=== PATIENT | female | born 1940 | race Caucasian/White ===

== ENCOUNTER 2017-12-26 12:56 | Inpatient (IN) | payer OTHER ==
[2017-12-26 13:43] LABS: PLATELET COUNT 229 10^3/uL (150-400)
[2017-12-26] MEDS ORDERED: NS 1,000 ML IV ONE ×2 (13:43→13:44)
--- NOTE | 2017-12-26 13:46 | EDPHY ---
H & P Smoking Status: Never smoked <KapilGabe - Last Filed: 12/26/17 15:10> <Chris Eubanks - Last Filed: 12/26/17 17:43> Time Seen by Provider: 12/26/17 13:14 HPI/ROS: Chief complaint. Loss of consciousness HPI. Patient is 77-year-old female visiting from [place]. [place] food and had vomiting. At 1 point during that episode at night her face tightness denies rolled back and she had brief loss of consciousness. There was no shaking or seizure-type activity. She felt weak for the next week did not have an evaluation by PCP. They arrive from [place] a yesterday. Today she was dizzy with walking and then sat down and then face went rigid for about 30 sec and she was unresponsive. Again no shaking. She has no headache, visual symptoms, chest pain, shortness of breath, abdominal pain. She has had decreased oral intake. No previous seizure or heart disease. ROS 10 systems were reviewed and negative with the exception of the elements mentioned in the history of present illness (Gabe Dick) Past Medical/Surgical History: Constipation (Gabe Dick) Social History: , nonsmoker, no alcohol (Gabe Dick) Physical Exam: General Appearance: Alert well-developed female mild distress vital signs are stable Eyes: Pupils equal and round no pallor or injection. ENT, Mouth: Mucous membranes are moist. Respiratory: There are no retractions, lungs are clear to auscultation. Cardiovascular: Regular rate and rhythm. Gastrointestinal: Abdomen is soft and nontender, no masses, bowel sounds normal. Neurological: Awake and alert, sensory and motor exams grossly normal. Speech is normal. Cranial nerves normal. There is no pronator drift. Xovkep-jk-bazk and zhcc-nx-kpxr are intact bilateral Skin: Warm and dry, no rashes. Musculoskeletal: Neck is supple nontender. Extremities symmetrical, full range of motion. Psychiatric: Patient is oriented X 3, there is no agitation. (Gabe Dick) Constitutional: Initial Vital Signs Temperature (C) 36.7 C 12/26/17 13:13 Heart Rate 89 12/26/17 13:13 Respiratory Rate 18 12/26/17 13:13 Blood Pressure 131/69 H 12/26/17 13:13 O2 Sat (%) 94 12/26/17 13:13 O2 Delivery Mode Room Air Allergies/Adverse Reactions: No Known Allergies Allergy (Unverified 12/26/17 13:15) Home Medications: Medication Instructions Recorded NK [No Known Home Meds] 12/26/17 Medical Decision Making <Gabe Dick - Last Filed: 12/26/17 15:10> - Diagnostics Imaging: Discussed imaging studies w/ scalloper Radiologist, I viewed and interpreted images myself <Chris Eubanks - Last Filed: 12/26/17 17:43> - Diagnostics Imaging Results: Imaging Impressions Head CT 12/26/17 13:44 Impression: 1. Abnormal bilateral frontal and temporal lobe vasogenic edema and possible petechial hemorrhage in the left temporal subinsular cortex. 2. These findings are suspicious for occult cerebral metastasis versus less likely severe microvascular ischemic gliosis. 3. No midline shift, herniation or epidural/subdural hematomas. 4. Recommend MRI brain without and with contrast enhancement. Findings and recommendations discussed with Emergency Department physician, Gabe Dick at 1412 hour, 12/26/2017. Final report concurs with initial preliminary interpretation. 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 Although the left temporal lesion could represent a necrotic tumor or abscess, this does not explain the right temporal and frontal findings, unless the patient had an embolic episode to both hemispheres, with cerebritis on the right and an abscess on the left. Results discussed with Dr. Eubanks at 5:03 PM. Chest X-Ray 12/26/17 14:24 Impression: 1. Hazy mild prominent interstitial markings at the left base. This could represent subtle pneumonitis or interstitial infiltrate. 2. Poor inspiration with mild compressive changes suspected at the left base as well. Noncontrast CT head shows edema in the frontal and temporal lobes bilaterally. Hyperdensity to the left temporal lobe. This is also consistent with vasogenic edema. Possible metastatic disease. MRI recommended (Gabe Dick) Procedures: IV normal saline with initial target 2 L, monitor (Gabe Dick) ED Course/Re-evaluation: Re-evaluation patient is stable. She and I discussed laboratory and CT evaluation. We discussed recommendation for MRI and concern for metastatic disease. She expresses understanding and agreement MRI is ordered and pending (Gabe Dick) Differential Diagnosis: Patient had 2 syncopal versus seizure episodes. She is a healthy woman without other complaints. She has an abnormal head CT that is suspicious for edema and possible metastatic disease. (Gabe Dick) Other Provider: 1710: Consulted with Dr. Hartley regarding patient's MRI. Dr. Thomas has reviewed images and suspect glioblastoma. The patient does not clinically meet any criteria for encephalitis. She has been admitted to Dr. Thomas and has already received a dose of Keppra and Dexamethasone. (Chris Eubanks) Care Turn Over: Dr. Eubanks at 3 pm. (Gabe Dick) - Data Points Laboratory Results: Laboratory Results 12/26/17 13:00 12/26/17 13:00 12/26/17 12/26/17 13:00 13:00 WBC 8.08 10^3/uL 10^3/uL (3.80-9.50) RBC 4.20 10^6/uL 10^6/uL (4.18-5.33) Hgb 12.5 g/dL L g/dL (12.6-16.3) Hct 38.1 % % (38.0-47.0) MCV 90.7 fL fL (81.5-99.8) MCH 29.8 pg pg (27.9-34.1) MCHC 32.8 g/dL g/dL (32.4-36.7) RDW 13.2 % % (11.5-15.2) Plt Count 229 10^3/uL 10^3/uL (150-400) MPV 10.4 fL fL (8.7-11.7) Neut % (Auto) 61.2 % % (39.3-74.2) Lymph % (Auto) 29.7 % % (15.0-45.0) Sanborn % (Auto) 6.9 % % (4.5-13.0) Eos % (Auto) 1.5 % % (0.6-7.6) Baso % (Auto) 0.5 % % (0.3-1.7) Nucleat RBC Rel Count 0.0 % % (0.0-0.2) Absolute Neuts (auto) 4.94 10^3/uL 10^3/uL (1.70-6.50) Absolute Lymphs (auto) 2.40 10^3/uL 10^3/uL (1.00-3.00) Absolute Monos (auto) 0.56 10^3/uL 10^3/uL (0.30-0.80) Absolute Eos (auto) 0.12 10^3/uL 10^3/uL (0.03-0.40) Absolute Basos (auto) 0.04 10^3/uL 10^3/uL (0.02-0.10) Absolute Nucleated RBC 0.00 10^3/uL 10^3/uL (0-0.01) Immature Gran % 0.2 % % (0.0-1.1) Immature Gran # 0.02 10^3/uL 10^3/uL (0.00-0.10) Sodium 141 mEq/L mEq/L (135-145) Potassium 4.4 mEq/L mEq/L (3.3-5.0) Chloride 107 mEq/L mEq/L (97-110) Carbon Dioxide 28 mEq/l mEq/l (22-31) Anion Gap 6 mEq/L mEq/L (6-14) BUN 16 mg/dL mg/dL (7-23) Creatinine 1.1 mg/dL H mg/dL (0.6-1.0) Estimated GFR 48 Glucose 125 mg/dL H mg/dL (70-100) Calcium 9.7 mg/dL mg/dL (8.5-10.4) Medications Given: Discontinued Medications Sodium Chloride (Ns) 1,000 mls @ 0 mls/hr IV EDNOW ONE; Wide Open PRN Reason: Protocol Stop: 12/26/17 13:44 Last Admin: 12/26/17 14:11 Dose: 1,000 mls Sodium Chloride (Ns) 1,000 mls @ 0 mls/hr IV EDNOW ONE; Wide Open PRN Reason: Protocol Stop: 12/26/17 13:45 Last Admin: 12/26/17 14:11 Dose: 1,000 mls Departure <Gabe Dick - Last Filed: 12/26/17 15:10> <Chris Eubanks - Last Filed: 12/26/17 17:43> - Departure Condition: Fair
[2017-12-26] MEDS ORDERED: GADOBUTROL 10 ML VIAL IVP ONE (15:26)
[2017-12-26] MEDS ORDERED: ACETAMINOPHEN 325 MG TAB PO PRN (17:06)
[2017-12-26] MEDS ORDERED: HYDROCODONE/APAP 5/325 TAB PO PRN (17:06)
[2017-12-26] MEDS ORDERED: ONDANSETRON 4 MG/2 ML VIAL IVP PRN (17:09)
[2017-12-26] MEDS ORDERED: IOPAMIDOL (ISOVUE-300) 100 ML BTL ONE (17:15)
--- NOTE | 2017-12-26 19:00 | GHP ---
DATE OF ADMISSION: 12/26/2017 REASON FOR CONSULTATION: Questionable seizure with medial temporal lobe/ insular tumor. 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 Approximately 1 week ago, she states that she had this episode where she felt very nauseated and did not quite "feel right." This was witnessed by her significant other where she did not have any loss of consciousness, but she did not appear to be responsive for a brief amount of time. The patient has not been feeling good for the last 1 week and presents to [facility] Emergency Department for further evaluation management. Patient underwent a head CT, which demonstrates a medial lobe lesion for which she was scheduled to undergo an MRI scan. Neurosurgical consultation was requested. As I discussed with the patient currently, she denies any neurological deficits. She denies any headaches. No visual field deficits. No diplopia, no blurred vision. No difficulty with her speech or comprehension. No changes with her hearing. No difficulty with speech or swallow. No numbness, tingling , pain or weakness of the upper or lower extremities. She is an otherwise very healthy woman. She does complain about some difficulty with her GI tract over the last week, but that has all since resolved. No known history of seizure or cancer history in herself. She does state that her brother from a high- grade glioma and her grandmother from gastric cancer several years ago. REVIEW OF SYSTEMS: Complete 10-point review of systems. Patient intake form reviewed by myself, significant only for those above in HPI. PAST MEDICAL HISTORY: Constipation. PAST SURGICAL HISTORY: None. SOCIAL HISTORY: The patient is here with her significant other. Is by common law. She does have a daughter in [place]. She denies any alcohol or tobacco use. ALLERGIES: No known drug allergies. MEDICATIONS: Prior to arrival: None. PHYSICAL EXAMINATION: VITAL SIGNS: Temperature is 36.7, heart rate is 89, respiratory rate is 18, blood pressure 131/69, she is saturating 94% on room air. GENERAL: The patient is sitting in the bed in no acute distress. She is quite pleasant and cooperative with the examination. HEENT: Head is atraumatic , normocephalic. Pupils are equal, round, and reactive to light bilaterally. Oropharynx is moist. NEUROLOGIC: Cranial nerves 2-12 are intact. Tongue protrudes midline. Uvula and palate elevate symmetrically. She has intact sensation on her face bilaterally. She has intact hearing to light finger scratch bilaterally. Shoulder shrug is symmetric. Pupils are equal, round, and reactive to light bilaterally and extraocular movements are intact. 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 Biceps, triceps, deltoids, bilateral hip flexion, plantar dorsiflexion, extensor hallucis longus. 1. Sensory exam. She has intact sensation to light touch throughout all major dermatomes of the bilateral upper and lower extremities throughout. 2. Other: No Deluca's, no Babinski. There is no pronator drift. 3. Reflexes 2+ reflexes at the bilateral brachioradialis and patellae. MEDICAL DECISION MAKING: Patient underwent a head CT without contrast, reviewed by myself on the [facility] PAC system. She also underwent an MRI of the brain with and without contrast, although also on the [facility] PAC system and reviewed by myself. This demonstrates evidence of a lesion within the anterior left temporal insular lesion white matter with enhancement without IBS nodularity approximately 2.4 x 2.4 cm. There is no associated hemorrhage within the lesion. There is also edema within the posterior right frontal lobe. LABS: White count 8.08, hematocrit 38.1. Sodium 141, potassium 4.4, BUN of 16 , creatinine 1.1. ASSESSMENT/PLAN: Ms. Diggs is a very pleasant, retired 77-year-old woman who comes today with a questionable history of a seizure 1 week ago and has evidence of a 2.4 x 2.4 cm left insular mass which appears to be more consistent with high-grade tumor like a primary glioma versus a secondary metastatic lesion. 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 This could be infectious. I reviewed the films with the patient and her significant other at the bedside. Because they are visiting from out of town, I had extensive conversation with them about possible treatment options, including treatment with steroids, antiepileptics, and discharge home with plan for followup in [place] with an oncologist and neurosurgeon. She is quite overwhelmed with information is not sure with the right answer is. They are also contemplating inpatient admission here with surgical resection and possible adjuvant therapy at home. I did discuss with them the risks of surgical intervention and the potential that she may require some rehabilitation with either speech, PT, OT after surgery in the event that she had a complication in which case, she would be away from her primary residence and support network. All these options were discussed extensively with them and at this time, we will go and admit them to the med/surg floor under my care. We will place her on Decadron and antiepileptics. I have talked to the medicine team who will see her to get her potentially cleared for surgical intervention. We have also made a decision that we will make a determination for when and where she should undergo surgery. Of note, the patient is left handed which may be in her favor given the location of the tumor. Please note that over 1 hour spent with the patient and her significant other in the emergency department reviewing all this information. /[id number]/MODL MTDD
[2017-12-26] MEDS: DEXAMETHASONE 4 MG TAB PO SCH (19:18)
[2017-12-26] MEDS: FAMOTIDINE 20 MG TAB PO SCH (19:19)
[2017-12-26] MEDS ORDERED: DOCUSATE SODIUM 100 MG CAP PO ONE (19:38)
[2017-12-26] MEDS ORDERED: POLYETHYLENE GLYCOL 3350 17 GM PKT ONE (20:09)
[2017-12-26] MEDS: POLYETHYLENE GLYCOL 3350 17 GM PKT PO SCH (20:12)
[2017-12-26] MEDS: SENNOSIDES 1 TAB PO SCH (20:12)
[2017-12-26] MEDS: DOCUSATE SODIUM 100 MG CAP PO SCH (20:14)
[2017-12-26] MEDS ORDERED: LR 1,000 ML IV SCH (20:30)
[2017-12-26] MEDS: levETIRAcetam 750 MG in NS 100 ML IV SCH (20:49)
[2017-12-27] MEDS: DEXAMETHASONE 4 MG TAB PO SCH ×4 (00:18→17:36)
[2017-12-27 05:12] LABS: PLATELET COUNT 220 10^3/uL (150-400)
--- NOTE | 2017-12-27 07:43 | PDMN ---
Medical Necessity Medical necessity: Pt meets inpt criteria per MD order and Neurology GRG. 77 y/ o admitted w/ new diagnosis of brain tumor. Head CT shows medial lobe lesion. Anticipate>2MN for further work-up/management of this new diagnosis, possible surgical intervention.
--- NOTE | 2017-12-27 08:38 | GCON ---
DATE OF CONSULTATION: 12/26/2017 CHIEF COMPLAINT: Seizure. HISTORY OF PRESENT ILLNESS: The patient is a pleasant 77-year-old female with no major past medical history who is visiting the area from [place], who presented to [facility] aft er having a seizure. She states she had a seizure as well approximately 1-2 weeks ago. This was the first time she has ever had a seizure, but did not seek any medical attention at that time. After i t happening again though today, she did present for further evaluation. She had an MRI of her brain performed in the emergency room and she was found to have evidence of necrosis and hemorrhage in the left temporal lobe. It was felt that this could represent necrotic tumor or abscess or potentially h erpes encephalitis. Neurosurgery was consulted and I reviewed the case with Dr. Thomas. It was felt that she likely had a glioblastoma and potential surgery was discussed. The patient's brother also had a history of glioblastoma and when he was in his 40s. The patient also had CT imaging of e head, chest and abdomen. There was no other obvious tumor identified. Discussions took place with the patient regarding plan of action. It was considered to return back to [place] so she cou ld be closer to home and seek medical attention there. At this time, however, she seems inclined tow balaji staying in [place] for potential surgery. She denied any recent photophobia or fevers or chills or neck stiffness. PAST MEDICAL HISTORY: None. PAST SURGICAL HISTORY: Knee arthroscopies. HOME MEDICATIONS: None. ALLERGIES: No known drug allergies. FAMILY HISTORY: Brother who from a glioblastoma in his 40s. SOCIAL HISTORY: The patient has 2 children, her son lives in [place] and her daughter in [facility]. She is currently but has a partner with whom she is traveling currently. 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 REVIEW OF SYSTEMS: A 10-point review of systems obtained and negative, otherwise as stated in the HP I. PHYSICAL EXAM: VITAL SIGNS: Temperature is 36.7, blood pressure 120/67, heart rate 71, respirations 18, saturating 94% on room air exam. GENERAL: Patient appears comfortable. She is awake, alert, c onversant, no acute distress. Oriented x3. HEENT: Extraocular movements intact. No scleral icteru s. NECK: Supple. No thyroid enlargement noted. CHEST: Clear to auscultation with normal respirat ory effort. HEART: Regular rate and rhythm. No murmurs. ABDOMEN: Soft, nontender, nondistended. : No Wise catheter in place. EXTREMITIES: No significant pitting edema. NEUROLOGIC: Cranial nerves 2-12 appear grossly intact with 5/5 strength in all extremities. LABS: White blood cell count 8, hemoglobin 12.5, platelets 229. Sodium 141, potassium 4.4, chloride 107, bicarb 28, BUN 16, creatinine 1.1, glucose of 125. IMAGING: As detailed above. ASSESSMENT AND PLAN: 1. Suspected glioblastoma. Further recommendations per Neurosurgery. The possibility of herpes enc ephalitis was brought up too, with the MRI imaging. I discussed with the patient possibly considerin g a lumbar puncture. I would recommend we review with Neurosurgery tomorrow whether this is necessar y or not. Her symptoms do not suggest a meningitis-type presentation, so we will hold off on any emp iric therapy at this time. 2. Acute kidney injury, possibly secondary to hypovolemia as patient states she has been having hicc ups over the past several days and reports no history of chronic kidney disease. Intravenous fluids overnight and reassess tomorrow. 3. Constipation. Daily MiraLAX and Senokot as needed daily. 4. DVT prophylaxis. We will hold heparin or Lovenox for now pending future plans for possible inter vention. 5. Disposition. At this time, patient states she would like to stay in [place] for medical attenti on. She is a full code status. /[id number]/MODL
[2017-12-27] MEDS: DOCUSATE SODIUM 100 MG CAP PO SCH ×2 (10:07→21:42)
[2017-12-27] MEDS: POLYETHYLENE GLYCOL 3350 17 GM PKT PO SCH (10:07)
[2017-12-27] MEDS: FAMOTIDINE 20 MG TAB PO SCH ×2 (10:07→21:42)
[2017-12-27] MEDS: levETIRAcetam 750 MG in NS 100 ML IV SCH ×2 (10:07→21:43)
--- NOTE | 2017-12-27 13:09 | ASMTCMCOM ---
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 after not feeling well. Pt has brain tumor. Pt resides in [place], is deciding if she wants surgery/treatment here in [place] or return to [place]. Neurosurgery primary and hospitalist consulting. No therapies ordered at this time. CM to follow for d/c needs. Date Signed: 12/27/2017 01:08 PM Electronically Signed By:IAN Brown
[2017-12-27] MEDS ORDERED: LACTULOSE 20 GM/30 ML UDCUP PO PRN (14:06)
--- NOTE | 2017-12-27 14:48 | NEUSURGPN ---
Assessment/Plan: A/P: 77 yo female found to have left medial temporal lobe tumor 2.4 x 2.4cm. Has appearance of high grade glioma vs infectious process -CT of C/A/P negative -Medicine spoke to patient about doing possible LP to rule out infectous process. Agree with this plan -If LP negative, would recommend surgical resection but patient is from [place] and Dr. Thomas spoke to her about receiving surgery back at home should she want to as her support system is there, and depending on surgery outcomes, could need rehab and would be away from home longer. The patient has thought about this but if surgery were to take place, she would like to get it done during this hospital stay. -Spoke with Dr. 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 No other changes. O: NAD, VSS CN II-XII grossly intact PERRL, EOMI Speech fluent NAYLOR X4 BUE/BLE 5/5 Sensation intact to lt touch - Physician Discussed Patient with Dr.: Ji Neurosurgery Physical Exam - Vitals, I&O, Labs I and O 12/26/17 12/27/17 12/28/17 05:59 05:59 05:59 Intake Total 2000 Output Total 1450 Balance 550 Weight 64.41 kg Intake: IV Infused (ml) 2000 Output: Urine (ml) 1450 Toilet 1450 Other: Number of Voids 1 Toilet 1 Vital Signs Temp Pulse Resp BP Pulse Ox 36.8 C 86 14 127/70 H 97 12/27/17 12:00 12/27/17 12:00 12/27/17 12:00 12/27/17 12:00 12/27/17 12:00 Laboratory Results 12/27/17 04:32 12/27/17 04:32 ICD10 Worksheet Patient Problems: Problems Problem Status Onset Neoplasm of brain Acute - ICD10 Problem Qualifiers (1) Neoplasm of brain
[2017-12-27] MEDS: SENNOSIDES 1 TAB PO SCH (21:43)
--- NOTE | 2017-12-27 21:56 | HOSPPROG ---
Hospitalist Progress Note Assessment/Plan: 77y female with c/o seizure. #SZ -none since admission -cont keppra #possible glio vs infectious process -pt considering LP to r/o infection -cont decadron -needs further treatment -pt evaluating options #Constipation -bowel therapy #dispo -pt deciding about returning home to [place] for treatment vs intervention here Subjective: Feels fine. No pain. No issues. Objective: Vital Signs Temp Pulse Resp BP Pulse Ox 36.9 C 76 15 111/59 L 95 12/27/17 20:00 12/27/17 20:00 12/27/17 20:00 12/27/17 20:00 12/27/17 20:00 Laboratory Results 12/27/17 04:32 12/27/17 04:32 12/26/17 12/27/17 12/28/17 05:59 05:59 05:59 Intake Total 2000 Output Total 1450 Balance 550 - Physical Exam Constitutional: no apparent distress, appears nourished Eyes: PERRL, anicteric sclera Ears, Nose, Mouth, Throat: moist mucous membranes, hearing normal Cardiovascular: regular rate and rhythym, No JVD Gastrointestinal: No tenderness, No ascites Skin: warm, normal color Musculoskeletal: no joint effusions, generalized weakness Neurologic: AAOx3 Psychiatric: interacting appropriately, not anxious, not encephalopathic ICD10 Worksheet Patient Problems: Problems Problem Status Onset Neoplasm of brain Acute
[2017-12-28] MEDS: DEXAMETHASONE 4 MG TAB PO SCH ×3 (00:18→12:25)
[2017-12-28 05:03] LABS: PLATELET COUNT 214 10^3/uL (150-400)
--- NOTE | 2017-12-28 08:28 | NEUSURGPN ---
Assessment/Plan: A/P: 77 yo female found to have left medial temporal lobe tumor 2.4 x 2.4cm. Has appearance of high grade glioma vs infectious process -CT of C/A/P negative -Medicine spoke to patient about doing possible LP to rule out infectious process. Patient has decided to go back to [place] and altaf be admitted to [place]/Dr. Dorman for surgical workup. -Will give patient scripts to continue Keppra and decadron until she gets to [place] -Spoke to them about signs and symptoms to be aware of and warning signs. All questions answered. -Continue Keppra and decadron -Call NS with any questions or concerns S: No pain. No further seizures. Has decided to go back home to [place] and will be admitted to [place] fo further treatment. O: NAD, VSS CN II-XII grossly intact PERRL, EOMI Speech fluent NAYLOR X4 BUE/BLE 5/5 Sensation intact to lt touch - Physician Discussed Patient with Dr.: Ji Neurosurgery Physical Exam - Vitals, I&O, Labs I and O 12/27/17 12/28/17 12/29/17 05:59 05:59 05:59 Intake Total 2000 450 Output Total 1450 Balance 550 450 Weight 64.41 kg Intake: Oral (ml) 450 IV Infused (ml) 2000 Output: Urine (ml) 1450 Toilet 1450 Other: Intake Quantity Yes Sufficient Number of Voids 1 Toilet 1 1 Number of Stools Toilet 1 Vital Signs Temp Pulse Resp BP Pulse Ox 36.7 C 48 L 13 100/64 98 12/28/17 07:45 12/28/17 07:45 12/28/17 07:45 12/28/17 07:45 12/28/17 07:45 Laboratory Results 12/28/17 04:37 12/28/17 04:37 ICD10 Worksheet Patient Problems: Problems Problem Status Onset Neoplasm of brain Acute - ICD10 Problem Qualifiers (1) Neoplasm of brain
[2017-12-28] MEDS: levETIRAcetam 750 MG in NS 100 ML IV SCH (08:39)
[2017-12-28] MEDS: FAMOTIDINE 20 MG TAB PO SCH (08:45)
[2017-12-28] MEDS: POLYETHYLENE GLYCOL 3350 17 GM PKT PO SCH (08:45)
[2017-12-28] MEDS: DOCUSATE SODIUM 100 MG CAP PO SCH (08:45)
[2017-12-28 11:40] VITALS: BP 121/72
--- NOTE | 2017-12-28 12:33 | ASDISCHSUM ---
Discharge Information Plan Status:Home with No Needs Medically Cleared to Leave:12/27/2017 Discharge Date:12/27/2017 CM D/C Disposition:Home, Routine, Self-Care ADT D/C Disposition:Home, Routine, Self-Care Projected Discharge Date:12/28/2017 01:00 PM Transportation at D/C:Friend Discharge Delay Reason: Follow-Up Date:12/28/2017 01:00 PM Discharge Slot:2 - 12:01 pm - 18:00 pm Final Diagnosis:Brain tumor Placement Information Patient Contact Information Contact Name:JUSTINA Relationship:Other Address: Work Phone: City: [place] Phone: State/[employer] Code: Email: Financial Information Financial Class:Medicare Advantage Plans Primary Plan Desc:[facility] MEDICARE Primary Plan Number:[id number] Secondary Plan Desc: Secondary Plan Number: Assessment Information LACE LACE Length of stay for Answers: 2 days current admission Acuity / Level of Answers: Yes Care: Did the patient have an inpatient admission? 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 Pt has brain tumor. Pt resides in [place], is deciding if she wants surgery/treatment here in [place] or return to [place]. Neurosurgery primary and hospitalist consulting. No therapies ordered at this time. CM to follow for d/c needs. Date Signed: 12/27/2017 01:08 PM Electronically Signed By:IAN Brown Case Management Discharge Plan Note Case Management Discharge Discharge Order Complete? Answers: Yes Patient to Obtain Answers: Independently Medications Transportation Arranged Answers: Family/Friends Transport will Pick (Date 12/28/2017 01:00 PM & Time) Family Notified Answers: Yes Notes: Friend to transport Discharge Comments Notes: Patient has been discharged. She has elected to return to [place] to have surgery in her home town. Date Signed: 12/28/2017 12:32 PM Electronically Signed By:Kerrie Caceres LCSW Intervention Information
--- NOTE | 2017-12-28 13:15 | HOSPPROG ---
Hospitalist Progress Note Assessment/Plan: 77y female with c/o seizure. #SZ -none since admission -cont keppra #possible glio vs infectious process -DC to [place] to fu at [place] -cont decadron -needs further treatment #Constipation -resolved #dispo -DC home to [place] Subjective: Feeling ok. No pain. Objective: Vital Signs Temp Pulse Resp BP Pulse Ox 36.4 C 77 14 121/72 H 94 12/28/17 11:39 12/28/17 11:39 12/28/17 11:39 12/28/17 11:39 12/28/17 11:39 Laboratory Results 12/28/17 04:37 12/28/17 04:37 12/27/17 12/28/17 12/29/17 05:59 05:59 05:59 Intake Total 2000 450 Output Total 1450 Balance 550 450 - Physical Exam Constitutional: no apparent distress, appears nourished Eyes: PERRL, anicteric sclera Ears, Nose, Mouth, Throat: moist mucous membranes, hearing normal Cardiovascular: No JVD, No edema Respiratory: no respiratory distress, clear to auscultation Gastrointestinal: No tenderness, No ascites Skin: warm, normal color Musculoskeletal: full muscle strength, no joint effusions Neurologic: AAOx3 Psychiatric: not anxious, not encephalopathic ICD10 Worksheet Patient Problems: Problems Problem Status Onset Neoplasm of brain Acute
== END 2017-12-28 12:42 | disposition home or self-care (01) | DRG 55 ==
LOC: EDAGE → F3N 22:56
PROVIDERS: ADMIT Neurological Surgery; ATTEND Neurological Surgery
DX: D43.2 Neoplasm of uncertain behavior of brain, unspecified (principal); N17.9 Acute kidney failure, unspecified; E86.9 Volume depletion, unspecified; K59.00 Constipation, unspecified
CPT/HCPCS: A9585; J1953; Q9967